=== PATIENT | female | born 1950 | race Hispanic/Latino ===

== ENCOUNTER → 2017-07-18 | Day surgery (SDC) | payer MEDICARE ==
[2017-07-14 13:41] LABS: BASOPHILS % 0.4 % (0.0-1.0); EOSINOPHILS # (AUTO) 0.2 (0.0-0.4); EOSINOPHILS % 2.5 % (0.0-6.0); HEMOGLOBIN 11.2 g/dL (12.0-16.0); LYMPHOCYTES # (AUTO) 1.5 (1.0-3.2); MEAN CORPUSCULAR HEMOGLOBIN 33.6 pg (28-32); MEAN CORPUSCULAR VOLUME 105.1 fL (81-99); MONOCYTES # (AUTO) 0.5 (0.2-0.8); MONOCYTES % 6.5 % (4.4-11.3); NEUTROPHILS # (AUTO) 5.8 (2.1-6.9); NEUTROPHILS % 71.1 % (38.7-80.0); PLATELET COUNT 274 x10e3/uL (140-360); RED BLOOD COUNT 3.33 x10e6/uL (3.6-5.1); RED CELL DISTRIBUTION WIDTH 13.4 % (11.7-14.4)
[~2017-07-18] MED LIST: ACETAMINOPHEN500 MG PO; ASPIR 8181 MG PO; LEVOTHYROXINE112 MCG PO; LIDOCAINE HC28.35 GM TOP; LIDOCAINE HCL 2% LOCAL INJ 5 ML SDV VIAL INJ ONE; LISINOPRIL10 MG PO; LOVASTATIN20 MG PO; LYRICA75 MG PO; MIDAZOLAM HCL 2 MG/2 ML VIAL ONE; MIDODRINE HCL2.5 MG PO; PANTOPRAZOLE SO40 MG PO; PROPOFOL IV EMULSION 10 MG/ML 50 ML VIAL ONE; RENA VITE PO; SENSIPAR30 MG PO; SODIUM CHLORIDE 0.9% 500ML 500 ML ONE; VIT B12 PO; VIT D3 PO; VITAMIN B-121000 MCG PO; ZYRTEC-D TABLE1 EACH PO
--- NOTE | 2017-07-18 14:07 | Operative Report ---
DATE OF PROCEDURE: July 18, 2017 REFERRING PHYSICIAN: Dr. Arnoldo Salinas PROCEDURE PERFORMED: Esophagogastroduodenoscopy with esophageal dilatation biopsies. INDICATIONS FOR EGD: Upper abdominal pain and dysphagia. MEDICATION: Patient was done under MAC. Please see anesthesiologist's note. PROCEDURE: With the patient in the left lateral decubitus position, the flexible fiberoptic Olympus gastroscope was introduced into the esophagus under direct visualization without any difficulty. There was some patchy erythema noted in the distal esophagus. A mild stricture was noted at the GE junction that was dilated to size 52-Japanese Nieves. The scope was then advanced with ease into the stomach. Mucosa overlying the antrum revealed some patchy erythema and moderate edema, and biopsies were obtained and sent to stain for H. pylori. The mucosa overlying the body revealed some patchy atrophic areas and biopsies were obtained. There was what appears a partially healed prepyloric ulcer and that was biopsied. The scope was the advanced all the way to the 2nd portion of the duodenum. Mucosa overlying the proximal 2nd portion and the duodenal bulb appeared to be within normal limits. The scope was then withdrawn back into the stomach and retroflexed. Mucosa overlying the fundus and the cardia appeared to be within normal limits. The scope was then straightened out. It was subsequently withdrawn. Patient tolerated the procedure well. IMPRESSION 1. Distal esophagitis, mild. 2. 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 3. Rule out atrophic gastritis, body. 4. ?Healing peripyloric ulcer, biopsied. PLAN: Follow up histology. Continue Protonix 40 mg 1 p.o. a.c. b.i.d. Job#: [id number] RI cc: ARNOLDO SALINAS MD
== END | disposition home or self-care (01) ==
LOC: OR 11:14
PROVIDERS: ATTEND Internal Medicine Gastroenterology
DX: K22.2 Esophageal obstruction (principal); K29.50 Unspecified chronic gastritis without bleeding; K20.9 Esophagitis, unspecified; K31.89 Other diseases of stomach and duodenum; K59.00 Constipation, unspecified; D64.9 Anemia, unspecified; I12.0 Hypertensive chronic kidney disease with stage 5 chronic kidney disease or end stage renal disease; N18.6 End stage renal disease; E78.00 Pure hypercholesterolemia, unspecified; E03.9 Hypothyroidism, unspecified; Z01.810 Encounter for preprocedural cardiovascular examination; Z01.812 Encounter for preprocedural laboratory examination; Z79.82 Long term (current) use of aspirin; Z99.2 Dependence on renal dialysis; Z68.36 Body mass index [BMI] 36.0-36.9, adult
CPT/HCPCS: 36415 ×2; 43239; 43450; 84132; 85025; 88305; 88312; 93005; J2001; J2250; J7040

== ENCOUNTER → 2018-12-18 | Outpatient (CLI) | payer MEDICARE ==
[~2018-12-18] MED LIST changes: +DIATRIZOATE MEGL/DIATRIZOA SOD 30 ML BTL PO ONE; +IOPAMIDOL 370 MG/ML 200 ML INFUS..BTL INJ ONE; -LIDOCAINE HCL 2% LOCAL INJ 5 ML SDV VIAL INJ ONE; -MIDAZOLAM HCL 2 MG/2 ML VIAL ONE; -PROPOFOL IV EMULSION 10 MG/ML 50 ML VIAL ONE; -SODIUM CHLORIDE 0.9% 500ML 500 ML ONE; +SODIUM CHLORIDE 0.9% 50ML 50 ML ONE
--- NOTE | 2018-12-19 09:14 | Diagnostic Imaging Report ---
EXAM: CT Abdomen and Pelvis WITH intravenous contrast INDICATION: Left Abdominal pain COMPARISON: None. TECHNIQUE: Abdomen and pelvis were scanned utilizing a multidetector helical scanner from the lung base to the pubic symphysis after administration of IV contrast. Coronal and sagittal reformations were obtained. Routine protocol was performed. Scan was performed during portal venous phase. IV CONTRAST: 100mL of Isovue 370 ORAL CONTRAST: Gastrografin RADIATION DOSE: Total DLP: 745.3 mGy*cm Dose modulation, iterative reconstruction, and/or weight based adjustment of the mA/kV was utilized to reduce the radiation dose to as low as reasonably achievable. FINDINGS: LOWER THORAX: Mild bibasilar subsegmental atelectasis. HEPATOBILIARY: No focal liver lesions. No biliary ductal dilation. Decompressed gallbladder containing gallstones. No gallbladder wall thickening or pericholecystic fluid. SPLEEN: No splenomegaly. PANCREAS: No focal masses or ductal dilatation. ADRENALS: No adrenal nodules. KIDNEYS/URETERS: Severely atrophic bilateral [place] kidneys. No renal calculi or hydronephrosis. PELVIC ORGANS/BLADDER: Status post hysterectomy. PERITONEUM / RETROPERITONEUM: No free air or fluid. LYMPH NODES: No lymphadenopathy. VESSELS: Scattered atherosclerotic calcifications of the nonaneurysmal abdominal aorta and major branches. GI TRACT: Sigmoid and distal descending colon diverticulosis without CT evidence of diverticulitis. No abnormal bowel thickening. No bowel obstruction. Reported history of appendectomy. BONES AND SOFT TISSUES: No acute osseous injury. No suspicious lytic or blastic lesions. Degenerative changes of the visualized spine. Grade 1 retrolisthesis at L2-3. IMPRESSION: Diverticulosis without CT evidence of diverticulitis. Cholelithiasis without CT evidence of cholecystitis. Atrophic bilateral [place] kidneys. Signed by: Arcadio Hanna MD on 12/19/2018 9:10 AM
== END ==
LOC: CT 15:36
PROVIDERS: ATTEND Internal Medicine Gastroenterology
DX: R10.9 Unspecified abdominal pain (principal)
CPT/HCPCS: 74177; Q9967

== ENCOUNTER → 2021-09-18 | Day surgery (SDC) | payer MEDICARE ==
[2021-09-16 13:21] LABS: BASOPHILS % 0.4 % (0.0-1.0); EOSINOPHILS # (AUTO) 0.1 (0.0-0.4); EOSINOPHILS % 3.1 % (0.0-6.0); HEMATOCRIT 34.4 % (34.2-44.1); HEMOGLOBIN 11.2 g/dL (12.0-16.0); LYMPHOCYTES # (AUTO) 1.3 (1.0-3.2); LYMPHOCYTES % 29.3 % (18.0-39.1); MEAN CORPUSCULAR HEMOGLOBIN 33.2 pg (28-32); MEAN CORPUSCULAR HGB CONC 32.6 g/dL (31-35); MEAN CORPUSCULAR VOLUME 102.1 fL (81-99); MONOCYTES # (AUTO) 0.4 (0.2-0.8); MONOCYTES % 7.7 % (4.4-11.3); NEUTROPHILS # (AUTO) 2.7 (2.1-6.9); NEUTROPHILS % 59.3 % (38.7-80.0); PLATELET COUNT 167 x10e3/uL (140-360); RED BLOOD COUNT 3.37 x10e6/uL (3.6-5.1); RED CELL DISTRIBUTION WIDTH 12.3 % (11.7-14.4)
[2021-09-16 13:51] LABS: ANION GAP 16.2 mmol/L (8-16); BLOOD UREA NITROGEN 16 mg/dL (7-26); BUN/CREATININE RATIO 3 (6-25); CALCIUM 10.3 mg/dL (8.4-10.2); CARBON DIOXIDE 31 mmol/L (22-29); CHLORIDE 98 mmol/L (98-107); CREATININE, SERUM 5.58 mg/dL (0.57-1.11); GLUCOSE 95 mg/dL (74-118); POTASSIUM 4.2 mmol/L (3.5-5.1); SODIUM 141 mmol/L (136-145)
[2021-09-16 13:58] LABS: INR 0.97; PARTIAL THROMBOPLASTIN TIME 39.2 seconds (23.8-35.5); PROTHROMBIN TIME 13.8 seconds (11.9-14.5)
[~2021-09-18] MED LIST changes: +AMLODIPINE BESY10 MG PO; +CARVEDILOL12.5 MG PO; -DIATRIZOATE MEGL/DIATRIZOA SOD 30 ML BTL PO ONE; +DICYCLOMINE HCL20 MG PO; +FENTANYL CITRATE/PF 100MCG/2 ML INJ ONE; -IOPAMIDOL 370 MG/ML 200 ML INFUS..BTL INJ ONE; +LIDOCAINE HCL 2% LOCAL INJ 5 ML SDV VIAL INJ ONE; +MIRAPEX0.25 MG PO; +PROPOFOL IV EMULSION 10 MG/ML 20 ML VIAL ONE; +RENVELA0.8 GM PO; +SODIUM CHLORIDE 0.9% 500ML 500 ML ONE; -SODIUM CHLORIDE 0.9% 50ML 50 ML ONE
[2021-09-18 13:55] VITALS: BP 142/80
== END | disposition home or self-care (01) ==
LOC: OR 09:24
PROVIDERS: ATTEND Internal Medicine Gastroenterology
DX: K29.50 Unspecified chronic gastritis without bleeding (principal); D12.2 Benign neoplasm of ascending colon; D12.4 Benign neoplasm of descending colon; K22.70 Barrett's esophagus without dysplasia; K20.90 Esophagitis, unspecified without bleeding; K57.30 Diverticulosis of large intestine without perforation or abscess without bleeding; K64.8 Other hemorrhoids; E03.9 Hypothyroidism, unspecified; E11.22 Type 2 diabetes mellitus with diabetic chronic kidney disease; I12.0 Hypertensive chronic kidney disease with stage 5 chronic kidney disease or end stage renal disease; N18.6 End stage renal disease; Z99.2 Dependence on renal dialysis; Z01.810 Encounter for preprocedural cardiovascular examination; Z01.812 Encounter for preprocedural laboratory examination; Z20.822 Contact with and (suspected) exposure to COVID-19; E78.5 Hyperlipidemia, unspecified
CPT/HCPCS: 0223U; 36415 ×2; 43239; 45385; 80048; 84132; 85025; 85610; 85730; 88305; 88342; 93005; C9113; J2001; J2704; J3010; J7040; 45378; 88312